=== PATIENT | female | born 1955 | race Caucasian/White ===

== ENCOUNTER 2021-11-14 00:33 | Emergency (ER) | payer BC ==
[2021-11-14 01:32] LABS: HEMOGLOBIN 13.7 gm/dl (12.3-15.3); RED BLOOD COUNT 4.39 M/UL (4.00-5.10); WHITE BLOOD COUNT 5.7 K/UL (4.5-11.0)
== END 2021-11-14 03:30 | disposition home or self-care (01) ==
LOC: ER1 00:33
PROVIDERS: Physician Assistant
DX: R05.9 Cough, unspecified (principal); Z20.822 Contact with and (suspected) exposure to COVID-19; Z88.5 Allergy status to narcotic agent; K21.9 Gastro-esophageal reflux disease without esophagitis
CPT/HCPCS: 71045; 80048; 82550; 82553; 83874; 84484; 85025; 99283; U0002

== ENCOUNTER 2021-11-20 14:11 | Emergency (ER) | payer BC | END 2021-11-20 17:10 | disposition home or self-care (01) | LOC: ER1 14:11 | DX: U07.1 COVID-19 (principal); Z23 Encounter for immunization; K21.9 Gastro-esophageal reflux disease without esophagitis; Z90.49 Acquired absence of other specified parts of digestive tract | CPT/HCPCS: 99283; M0245 ==